=== PATIENT | female | born 1995 | race African-American/Black ===

== ENCOUNTER 2016-12-30 14:22 | Inpatient (IN) | payer BC, OTHER ==
[2016-12-30] MEDS ORDERED: Lidocaine 1% (PF) 30 ML VIAL SC PRN ×2 (14:40→14:43)
[2016-12-30] MEDS ORDERED: LR / Pitocin 40 units/1000 ml 1,000 ML IV PRN ×2 (14:40→14:43)
[2016-12-30] MEDS ORDERED: Acetaminophen 500 MG TAB PO PRN (14:40)
[2016-12-30] MEDS ORDERED: Promethazine HCl 25 MG/ML VIAL IM PRN ×3 (14:40→19:48)
[2016-12-30] MEDS ORDERED: Ondansetron HCl/PF 4 MG/2 ML Vial IVP PRN ×5 (14:40→19:55)
[2016-12-30] MEDS ORDERED: Zolpidem Tartrate 5 MG TAB PO PRN (14:40)
[2016-12-30] MEDS ORDERED: Misoprostol 200 MCG TAB PR PRN (14:43)
[2016-12-30] MEDS ORDERED: Ibuprofen 800 MG TAB PO PRN (14:43)
[2016-12-30] MEDS ORDERED: Diphenoxylate HCl/Atropine Tablet PO PRN ×2 (14:43)
[2016-12-30] MEDS ORDERED: HYDROcodone/Acetaminophen 5/325 mg Tablet PO PRN ×2 (14:43)
[2016-12-30] MEDS ORDERED: LR 500 ML/Oxytocin 10 units 500 ML IV SCH (14:45)
[2016-12-30] MEDS ORDERED: Penicillin G Potassium 5 MILL.UNITS in Sodium Chloride 0.9% 100 ML IVPB SCH (14:45)
[2016-12-30] MEDS: Lactated Ringer's 1,000 ML IV SCH (15:06)
[2016-12-30 15:20] LABS: #Eosinphils 0.1 thou/uL (0.0-0.7); #Lymphocytes 1.7 thou/uL (1.20-3.40); #Monocytes 0.8 thou/uL (0.11-0.59); #Neutrophils 8.4 thou/uL (1.40-6.50); %Basophils 0.4 % (0.0-1.0); %Eosinophils 0.8 % (0.0-10.0); %Lymphocytes 15.3 % (21.0-51.0); %Monocytes 6.8 % (0.0-10.0); Mean Platelet Volume 9.3 fL (7.4-10.4); Red Blood Cell (RBC) Count 3.89 mill/uL (4.20-5.40)
[2016-12-30] MEDS: hydrALAZINE 20 MG/ML VIAL SLOW IVP SCH ×2 (15:52→17:35)
[2016-12-30 16:32] VITALS: BMI 37.5
[2016-12-30] MEDS ORDERED: FLU VACC QS2017-18 36 mo. & older 0.5 ML SYRINGE IM ONE (17:00)
[2016-12-30] MEDS ORDERED: hydrALAZINE 20 MG/ML VIAL ONE (17:30)
[2016-12-30] MEDS ORDERED: hydrALAZINE 20 MG/ML VIAL SLOW IVP PRN ×2 (17:44→23:07)
[2016-12-30] MEDS ORDERED: Bicitra 30 ML UDCUP ONE (17:47)
[2016-12-30] MEDS ORDERED: CEFAZOLIN/Water 2 GM/20 ML SYRINGE ONE (17:48)
[2016-12-30] MEDS ORDERED: Magnesium Sulfate 20 gm/500 ml 20 GM/500 ML BAG ONE (17:58)
[2016-12-30] MEDS ORDERED: Magnesium Sulfate 20 gm/500 ml 4 GM/100 ML BAG IVPB SCH (18:15)
[2016-12-30] MEDS ORDERED: Magnesium Sulfate 4 GM in Sodium Chloride 0.9% 250 ML 250 ML IVPB SCH (18:15)
[2016-12-30] MEDS ORDERED: Magnesium Sulfate 20 gm/500 ml 20 GM/500 ML BAG IVPB PRN (18:15)
[2016-12-30] MEDS ORDERED: Morphine PF 1 MG/ML SYR ONE (18:20)
[2016-12-30] MEDS ORDERED: Ondansetron HCl/PF 4 MG/2 ML Vial ONE (18:21)
[2016-12-30] MEDS ORDERED: Oxytocin 10 UNITS/ML VIAL ONE (18:21)
[2016-12-30] MEDS ORDERED: Ketorolac Tromethamine 30 MG/ML VIAL ONE (18:21)
[2016-12-30] MEDS ORDERED: PHENYLEPHRINE-NS 100 MCG/ML 10 ML SYRINGE ONE ×3 (18:21→19:22)
[2016-12-30] MEDS ORDERED: Eucerin (Mineral Oil/Petrolatum,White) 30 gm Jar TOP PRN (19:48)
[2016-12-30] MEDS ORDERED: Naloxone HCl 0.4 mg/ml Vial IV PRN (19:48)
[2016-12-30] MEDS ORDERED: Meperidine HCl/PF 25 MG/ML VIAL SLOW IVP PRN (19:48)
[2016-12-30] MEDS ORDERED: HYDROmorphone 2 MG/ML VIAL SLOW IVP PRN (19:48)
[2016-12-30] MEDS ORDERED: Promethazine HCl 25 MG SUPP PR PRN (19:48)
[2016-12-30] MEDS ORDERED: Naloxone HCl 0.4 mg/ml Vial IVP PRN ×2 (19:48)
[2016-12-30] MEDS ORDERED: Adacel (T-DAP) 0.5 ML VIAL IM ONE (19:55)
[2016-12-30] MEDS ORDERED: diphenhydrAMINE 25 MG CAP PO PRN (19:55)
[2016-12-30] MEDS ORDERED: Bisacodyl 10 MG SUPP PR PRN (19:55)
[2016-12-30] MEDS ORDERED: Lanolin Ointment 7 GM TUBE TOP PRN (19:55)
[2016-12-30] MEDS ORDERED: Calcium Gluconate 4.6 MEQ in Sodium Chloride 0.9% 100 ML IVPB PRN (19:58)
[2016-12-30] MEDS ORDERED: Lactated Ringer's 1,000 ML IV SCH (20:00)
[2016-12-30] MEDS ORDERED: Communication Order-Pharmacy FS SCH (20:00)
[2016-12-30] MEDS ORDERED: LR w/ Pitocin 40 units/1000 ML BAG IV SCH (20:00)
[2016-12-30] MEDS ORDERED: hydrALAZINE 20 MG/ML VIAL SLOW IVP SCH (23:00)
[2016-12-30] MEDS ORDERED: Labetalol HCl 100 MG TAB PO SCH (23:00)
--- NOTE | 2016-12-31 00:09 | OP ---
DATE OF PROCEDURE: 12/30/2016 ATTENDING STAFF PHYSICIAN: Jayro Barksdale M.D. SURGEON: Jayro Barksdale M.D. MECHANICAL CAD DESIGNER SURGEON: Dr. Rigoberto Mendez at [facility]. PREOPERATIVE DIAGNOSES: 1. intrauterine at 36 and 4/7 weeks. 2. Severe pre-eclampsia. 3. Baby small for gestational age. POSTOPERATIVE DIAGNOSES: 1. intrauterine at 36 and 4/7 weeks. 2. Severe pre-eclampsia. 3. Baby small for gestational age. PROCEDURE: Primary low transverse section. ANESTHESIA: Spinal catheterization. FINDINGS: 1. Severe pre-eclampsia. 2. Vigorous female, 4 pounds 10 ounces, Apgars 9 and 9. 3. Normal uterus, tubes, and ovaries. COMPLICATIONS: None. SPECIMENS REMOVED: 1. Cord blood. 2. Cord gas. BLOOD LOSS: 800 mL. HISTORY AND INDICATIONS: Ms. Albina Saab is a very pleasant 21-year-old black female 1, par a 0, who is followed in my clinic for obstetric care. Albina is well known to my staff as she was pr eviously a [employer] employee. We had continued her care during current . She presente d to the office on Friday with complaints of edema and high blood pressures. Her pressures at that time were elevated in the range of 140s to 150s over 80s to 100s. She had trace proteinuria. She h ad a reactive NST and was placed at strict bed rest and started on Aldomet for gestational hypertens ion. She returned to the office as instructed for testing today on 12/30/2016. Her blood pressures were significantly elevated (168/112, 162/110, 171/105) and she was noted to have 3+ prot einuria. She also complained of significant edema and the baby was measuring small for gestational age (SGA). Estimated weight was approximately 5 pounds with a grade III placenta and decreasi ng amniotic fluid. The patient was immediately sent to labor and delivery for what was hoped to be induction of labor. Laboratory studies returned showing a protein to creatinine ratio greater than 35, uric acid of 7 and significantly elevated blood pressures. The patient was given hydralazine in travenously without successfully controlling her pressures. The patient's cervix was noted to be 2 cm dilated, 70% effaced and still -3 station. Being that her pressures were very difficult to contr ol and the findings of a grade III placenta and SGA, the decision was made to proceed with primary c esarean delivery. Albina and her family were counseled at length and they were in agreement with the outlined management and treatment plan. Surgical disclosures were signed and placed in the chart. PROCEDURE: After thorough consent and counseling, Ms. Saab was taken to the operating room and jennifer quate level of anesthesia was obtained by spinal catheterization. The patient was prepped and drape d in the usual sterile fashion for abdominal surgery. A Saab was placed in the bladder, which was drained of clear urine. heart tones were obtained in the OR were noted to be in the 140s to 1 50s and stable. Deep venous thrombosis prophylaxis was also placed with compression devices. Atten tion was then turned to performing the primary low transverse section. A Pfannenstiel incision was made and carried sharply to the fascia, which was also sharply incised. The midline was identified and the rectus muscles were retracted laterally. The abdominal peritone al cavity was entered with usual safeguards carried out. A retractor was placed and a bladder flap was created on the vesicouterine peritoneum. A bladder blade was then placed. A low transverse inc ision was made on the well-developed lower uterine segment. Upon entering the amniotic sac, a very small amount of clear amniotic fluid was noted. The infant was noted to be vertex presentation in t he occiput anterior position, still high in the pelvis. Head was delivered and baby was bulb suctio yin on the abdomen. Nuchal cord x1 was reduced. The cord was doubly clamped and cut and the was handed to the neonatology team in attendance for the delivery. The was a vigorous viabl e female weighing 4 pounds 10 ounces with Apgars of 9 and 9 obtained at 1 and 5 minutes respectively . Cord blood and gases were obtained. The placenta was manually removed from the uterus. The uter us was exteriorized and good tone was noted. The uterine cavity was cleared of any remaining clot a nd fluid. The low transverse incision was closed with a running locking ligature of #1 chromic. A second imbricating layer was placed to facilitate strength and hemostasis. The vesicouterine perito neum was closed with a running ligature of 3-0 Monocryl suture. The uterus, fallopian tubes and ova harvinder were carefully inspected and noted to be normal. The surgical site was inspected and noted to be hemostatic. The posterior cul-de-sac and gutters were cleared of clot and fluid. Seprafilm was applied to the low transverse incision and to the anterior aspect of the uterus for adhesion prevent ion. The uterus was returned to the abdomen. Good tone and hemostasis was appreciated. Lap, spong e, and needle counts were correct. The peritoneum was closed with a running ligature of 2-0 Vicryl. The rectus muscles were reapproximated in midline with interrupted ligatures of 2-0 Vicryl and 0 c hromic suture. There were several bleeders noted on the rectus muscles, which required [id number] ght ligature of 0 chromic suture for hemostasis. Once again, all surgical sites were examined and n oted to be hemostatic. The fascia was closed with 2 ligatures of 0 Vicryl suture, which were tied i n the midline. The incision was irrigated with copious amount of warm normal saline. The subcutane ous tissue was then closed with interrupted ligatures of 2-0 plain suture. The skin was closed with a subcuticular stitch of 4-0 Monocryl and dressed with Dermabond. A pressure dressing and ice pack s were subsequently placed. Lap, sponge, and needle counts correct x3. Estimated blood loss during the surgical procedure was approximately 800 mL. The patient was taken to the recovery room in good condition. Immediately following surgery, the pa tient and family were made aware of the surgical procedure and operative findings. Questions answer ed to their satisfaction. Mother and baby were both doing well postoperatively.
[2016-12-31] MEDS: Magnesium Sulfate 20 gm/500 ml 20 GM/500 ML BAG IVPB SCH ×2 (02:00→14:27)
[2016-12-31 03:22] LABS: Hematocrit 32.5 % (36.0-47.0); Mean Platelet Volume 9.5 fL (7.4-10.4); White Blood Cell (WBC) Count 22.2 thou/uL (4.8-10.8)
[2016-12-31 03:46] LABS: Band 5 % (5-11); Neutrophil 84 % (42-75)
[2016-12-31] MEDS: Penicillin G 2.5 MILL.units 2.5 MILL.UNITS in Premix Bag 1 BAG IVPB SCH ×3 (05:16→13:01)
[2016-12-31] MEDS: Docusate (Surfak) 240 MG CAP PO SCH ×3 (05:19→21:39)
[2016-12-31] MEDS: Ibuprofen 800 MG TAB PO SCH ×4 (05:19→21:39)
[2016-12-31] MEDS: Ferrous Sulfate 325 MG TAB PO SCH ×3 (05:19→21:40)
[2016-12-31] MEDS: Lactated Ringer's 1,000 ML IV SCH ×2 (06:43→07:45)
[2016-12-31] MEDS ORDERED: Zolpidem Tartrate 5 MG TAB PO PRN (08:00)
[2016-12-31] MEDS ORDERED: Meperidine HCl/PF 25 MG/ML VIAL IM PRN (08:00)
[2016-12-31] MEDS: Labetalol HCl 100 MG TAB PO SCH ×2 (09:29→21:39)
[2016-12-31] MEDS: diphenhydrAMINE 50 MG/ML VIAL IVP PRN ×2 (09:31→13:31)
[2016-12-31] MEDS: Prenatal Vitamin 1 TAB PO SCH (13:01)
[2016-12-31] MEDS ORDERED: hydrOXYzine Pamoate 25 mg Capsule PO SCH (14:15)
[2016-12-31] MEDS: HYDROcodone/Acetaminophen 5/325 mg Tablet PO PRN ×2 (17:36→23:38)
[2016-12-31] MEDS: hydrOXYzine Pamoate 25 mg Capsule PO SCH ×2 (17:59→23:38)
[2016-12-31] MEDS: Simethicone Chewable 80 MG TAB PO PRN (23:39)
[2017-01-01] MEDS: Lactated Ringer's 1,000 ML IV SCH (01:56)
[2017-01-01] MEDS: HYDROcodone/Acetaminophen 5/325 mg Tablet PO PRN ×4 (04:12→18:00)
[2017-01-01] MEDS: Simethicone Chewable 80 MG TAB PO PRN (05:58)
[2017-01-01] MEDS: Ibuprofen 800 MG TAB PO SCH ×3 (05:58→21:32)
[2017-01-01] MEDS: hydrOXYzine Pamoate 25 mg Capsule PO SCH ×3 (06:00→17:34)
[2017-01-01] MEDS: Prenatal Vitamin 1 TAB PO SCH (08:53)
[2017-01-01] MEDS: Labetalol HCl 100 MG TAB PO SCH ×2 (08:53→21:31)
[2017-01-01] MEDS: Ferrous Sulfate 325 MG TAB PO SCH ×2 (08:53→21:32)
[2017-01-01] MEDS: Docusate (Surfak) 240 MG CAP PO SCH ×2 (08:54→21:32)
[2017-01-02] MEDS: hydrOXYzine Pamoate 25 mg Capsule PO SCH ×3 (00:45→14:30)
[2017-01-02] MEDS: Ibuprofen 800 MG TAB PO SCH ×2 (04:34→13:05)
[2017-01-02] MEDS: HYDROcodone/Acetaminophen 5/325 mg Tablet PO PRN (04:34)
[2017-01-02] MEDS: Labetalol HCl 100 MG TAB PO SCH (10:10)
[2017-01-02] MEDS: Docusate (Surfak) 240 MG CAP PO SCH (10:10)
[2017-01-02] MEDS: Prenatal Vitamin 1 TAB PO SCH (10:10)
[2017-01-02] MEDS: Ferrous Sulfate 325 MG TAB PO SCH (10:10)
[2017-01-02] MEDS: Penicillin G 2.5 MILL.units 2.5 MILL.UNITS in Premix Bag 1 BAG IVPB SCH (10:15)
[2017-01-02 12:30] VITALS: BP 131/93; TEMP 98.9
[2017-01-02] MEDS: Simethicone Chewable 80 MG TAB PO PRN (13:04)
[2017-01-02] MEDS ORDERED: FLU VACC QS2017-18 36 mo. & older 0.5 ML SYRINGE IM ONE (21:00)
== END 2017-01-02 16:40 | disposition home or self-care (01) | DRG 766 ==
LOC: L&D 14:22 → 2SW 12-31 19:32 → 3SW 12-31 19:50
PROVIDERS: ADMIT Obstetrics & Gynecology; ATTEND Obstetrics & Gynecology
PROC: 10D00Z1 Extraction of Products of Conception, Low, Open Approach (ICD-10-PCS; principal; 2016-12-30)
PROC: 3E0P3VZ Introduction of Hormone into Female Reproductive, Percutaneous Approach (ICD-10-PCS; 2016-12-30)
DX: O14.14 Severe pre-eclampsia complicating childbirth (principal); O99.824 Streptococcus B carrier state complicating childbirth; O69.81X0 Labor and delivery complicated by cord around neck, without compression, not applicable or unspecified; Z37.0 Single live birth; Z3A.36 36 weeks gestation of pregnancy; P05.18 Newborn small for gestational age, 2000-2499 grams
CPT/HCPCS: 36415; 82570; 82805; 83615; 83735; 84156; 84450; 84460; 84550; 85025; 86780; 86850; 86900; 86901; 87340; 90715; J0131; J0360; J1200; J1885; J2274; J2310; J2405; J2540; J2590; J3475; J7050; J7120; Q0177

== ENCOUNTER 2019-09-12 15:54 | Emergency (ER) | payer BC, OTHER ==
[2019-09-13 12:23] LABS: SARS-CoV-2 MS2 Positive; SARS-CoV-2 N Gene Negative; SARS-CoV-2 S Gene Negative; SARS-CoV-2 orf1ab Negative
== END 2019-09-12 16:23 | disposition home or self-care (01) ==
LOC: ERS 15:54
DX: Z20.828 Contact with and (suspected) exposure to other viral communicable diseases (principal)
CPT/HCPCS: 87635; 99283; U0003